=== PATIENT | female | born 1995 | race American Indian/Alaskan Native ===

== ENCOUNTER 2018-10-20 17:44 | Emergency (ER) | payer SELFPAY ==
[2018-10-20] MEDS ORDERED: ATIVAN IV STA (18:23)
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
[2018-10-20 19:52] LABS: HCG Qualitative,Urine Negative (Negative)
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
[2018-10-20] MEDS ORDERED: TORADOL IV ONE (21:03)
[2018-10-20 21:48] VITALS: BP 120/70
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
--- NOTE | 2018-10-20 22:10 | XRay Report ---
PROCEDURE: XR SPINE CERVICAL 2-3V TECHNIQUE: Cervical spine 4 views HISTORY: neck pain COMPARISONS: FINDINGS: Vertebral bodies demonstrate normal height and alignment. C1 and C2 appear intact. Prevertebral soft tissues are unremarkable. The facet joints demonstrate normal alignment. The spinous processes are in tact. IMPRESSION: Negative cervical spine series. This document is electronically signed by Harlan Reilly MD., Oct 20 2018 10:08:27 PM ET
--- NOTE | 2018-10-20 22:23 | XRay Report ---
PROCEDURE: XR PELVIS 1-2V TECHNIQUE: AP pelvis HISTORY: leg leg pain COMPARISONS: FINDINGS: No acute fracture identified. No dislocation seen. Hip joints are intact. No evidence for widening of the pubic symphysis or the SI joints. IMPRESSION: Negative AP pelvis. This document is electronically signed by Harlan Reilly MD., Oct 20 2018 10:21:33 PM ET
== END 2018-10-20 21:57 | disposition home or self-care (01) ==
LOC: ED 17:44
DX: M25.562 Pain in left knee (principal); Z88.6 Allergy status to analgesic agent; V49.9XXA Car occupant (driver) (passenger) injured in unspecified traffic accident, initial encounter; Y93.89 Activity, other specified; Y92.488 Other paved roadways as the place of occurrence of the external cause; Y99.8 Other external cause status
CPT/HCPCS: 70450; 72040; 72170; 73562; 81025; 96374; 96375; 99285; J1885; J2060

== ENCOUNTER 2019-02-22 16:52 | Emergency (ER) | payer SELFPAY ==
[2019-02-22 18:22] VITALS: BP 113/65
== END 2019-02-22 18:30 | disposition left against medical advice (07) ==
LOC: ED 16:52
DX: R07.89 Other chest pain (principal); Z53.21 Procedure and treatment not carried out due to patient leaving prior to being seen by health care provider

== ENCOUNTER 2019-03-26 15:34 | Emergency (ER) | payer SELFPAY ==
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
[2019-03-26 16:14] VITALS: BP 112/51
[2019-03-26] MEDS ORDERED: oxyCODONE /ACETAMINOPHEN 5-325MG TAB PO ONE (16:27)
[2019-03-26] MEDS ORDERED: SODIUM CHLORIDE 0.9% 1000 ML 1,000 ML IV ONE (16:27)
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
[2019-03-26] MEDS ORDERED: ceFAZolin/NS 1 GM/50 ML 1 GM/50 ML BAG IV ONE (17:00)
== END 2019-03-26 18:05 | disposition home or self-care (01) ==
LOC: ED 15:34
DX: S81.011D Laceration without foreign body, right knee, subsequent encounter (principal); L03.115 Cellulitis of right lower limb; Z79.899 Other long term (current) drug therapy; X58.XXXD Exposure to other specified factors, subsequent encounter
CPT/HCPCS: 96365; 99284; J0690; J7030

== ENCOUNTER 2019-07-25 19:44 | Emergency (ER) | payer SELFPAY ==
[2019-07-25 20:43] VITALS: BP 120/71
== END 2019-07-25 22:00 | disposition left against medical advice (07) ==
LOC: ED 19:44
DX: R07.89 Other chest pain (principal); Z53.21 Procedure and treatment not carried out due to patient leaving prior to being seen by health care provider
CPT/HCPCS: 93005; 93010

== ENCOUNTER 2020-05-21 09:08 | Emergency (ER) | payer MEDICAID ==
[2020-05-21 09:24] VITALS: BP 103/53
[2020-05-21] MEDS ORDERED: SODIUM CHLORIDE 0.9% 1000 ML 1,000 ML IV ONE (09:43)
[2020-05-21] MEDS ORDERED: ONDANSETRON 4 MG/2 ML INJ IV ONE (09:44)
[2020-05-21] MEDS ORDERED: ACETAMINOPHEN 325 MG/10.15 ML ORAL LIQD UNIT DOSE PO ONE (09:44)
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
--- NOTE | 2020-05-21 11:17 | XRay Report ---
CHEST 1 VIEW 05/21/2020 10:47 AM INDICATION / CLINICAL INFORMATION: left sided rib pain, coughing, syncope. COMPARISON: None available. FINDINGS: SUPPORT DEVICES: None. HEART / MEDIASTINUM: No significant abnormality. LUNGS / PLEURA: No significant pulmonary or pleural abnormality. No pneumothorax. ADDITIONAL FINDINGS: No significant additional findings. IMPRESSION: 1. No acute findings. Signer Name: Benji Cody MD Signed: 05/21/2020 11:13 AM Workstation Name: [email or web address]
--- NOTE | 2020-05-21 11:27 | Ultrasound Report ---
ULTRASOUND OBSTETRIC INDICATION / CLINICAL INFORMATION: lower abd pain, spotting. TECHNIQUE: Transabdominal and transvaginal imaging was performed COMPARISON: None available. FINDINGS: GESTATIONAL SAC: Well-defined oval shape and intrauterine in location. YOLK SAC: No significant abnormality. EMBRYO/FETUS: No significant abnormality. - [place]-Rump Length = 5.1 cm = 11 weeks, 5 day(s). - Heart Rate, beats per minute (if present) = 157 ADNEXA: No significant abnormality. FREE FLUID: None. ADDITIONAL FINDINGS: Prominent septation amniotic fluid-membrane most noted surrounding the lower ext remities IMPRESSION: 1. Single, living intrauterine with estimated sonographic age of 11 weeks, 5 day(s). 2. Prominent septation-membrane as noted recommend maternal medicine consult for further evalua tion Signer Name: Willie Tim MD Signed: 05/21/2020 11:22 AM Workstation Name: [id number]
--- NOTE | 2020-05-21 11:27 | Ultrasound Report ---
ULTRASOUND OBSTETRIC INDICATION / CLINICAL INFORMATION: lower abd pain, spotting. TECHNIQUE: Transabdominal and transvaginal imaging was performed COMPARISON: None available. FINDINGS: GESTATIONAL SAC: Well-defined oval shape and intrauterine in location. YOLK SAC: No significant abnormality. EMBRYO/FETUS: No significant abnormality. - [place]-Rump Length = 5.1 cm = 11 weeks, 5 day(s). - Heart Rate, beats per minute (if present) = 157 ADNEXA: No significant abnormality. FREE FLUID: None. ADDITIONAL FINDINGS: Prominent septation amniotic fluid-membrane most noted surrounding the lower ext remities IMPRESSION: 1. Single, living intrauterine with estimated sonographic age of 11 weeks, 5 day(s). 2. Prominent septation-membrane as noted recommend maternal medicine consult for further evalua tion Signer Name: Willie Tim MD Signed: 05/21/2020 11:22 AM Workstation Name: [id number]
[2020-05-21 12:40] LABS: Hematocrit 32.8 % (30.3-42.9); Hemoglobin 11.3 gm/dl (10.1-14.3)
[2020-05-21 12:51] LABS: INR 1.03 (0.87-1.13)
[2020-05-21 13:06] LABS: Amphetamine Screen,Urine Negative; Benzodiazepines Screen,Urine Negative; Cocaine Screen,Urine Negative; Methadone Screen,Urine Negative; Opiate Screen,Urine Negative
[2020-05-21 13:09] LABS: Alanine Aminotransferase 9 units/L (7-56); Albumin 3.4 g/dL (3.9-5); Blood Urea Nitrogen 8 mg/dL (7-17); Calcium 8.7 mg/dL (8.4-10.2); Hemolysis Index 4
[2020-05-21 13:20] LABS: Bacteria,Urine 1+ /HPF (Negative); Bilirubin,Urine NEG (Negative); Blood,Urine NEG (Negative); Color,Urine Red (Yellow); Protein,Urine <15 mg/dL mg/dL (Negative); RBC,Urine < 1.0 /HPF (0.0-6.0); Urobilinogen,Urine < 2.0 mg/dL (<2.0)
[2020-05-21 13:21] LABS: BUN/Creatinine Ratio 13
[2020-05-21] MEDS ORDERED: cephALEXin 500 MG CAP PO ONE (13:30)
[2020-05-21 13:35] LABS: Cannabinoid Screen,Urine Positive
== END 2020-05-21 14:56 | disposition home or self-care (01) ==
LOC: ED 09:08
DX: O26.891 Other specified pregnancy related conditions, first trimester (principal); O21.8 Other vomiting complicating pregnancy; O28.3 Abnormal ultrasonic finding on antenatal screening of mother; R55 Syncope and collapse; R05 Cough; F17.200 Nicotine dependence, unspecified, uncomplicated; Z3A.11 11 weeks gestation of pregnancy; Z79.899 Other long term (current) drug therapy
CPT/HCPCS: 36415; 71045; 76801; 76817; 80053; 80307; 81001; 83735; 84443; 84484; 84702; 85014; 85018; 85049; 85610; 86850; 86900; 86901; 93005; 96361; 96374; 99285; J2405